=== PATIENT | female | born 1955 | race Caucasian/White ===

== ENCOUNTER 2016-12-11 08:34 | Emergency (ER) | payer OTHER, MEDICAID ==
[~2016-12-11] VITALS: Ht 167.6 cm; Wt 68.0 kg
[2016-12-11] MEDS ORDERED: SODIUM CHLORIDE 0.9% 1,000 ML IV ONE (10:08)
[2016-12-11 10:19] LABS: Urine RBC None Seen /hpf (0 - 4)
[2016-12-11 10:31] LABS: Basophils # (auto) 0 uL; Basophils % (auto) 0.3 % (0.0-2.0); Eosinophils # (auto) 0.1 uL; Eosinophils % (auto) 1.1 % (0.0-7.0); Hematocrit 42.5 % (36.0-46.0); Hemoglobin 13.8 g/dL (12.2-16.2); Lymphocytes # (auto) 2.3 uL; Lymphocytes % (auto) 23.1 % (10.0-50.0); Mean Corpuscular Hemoglobin 28.2 pg (28.0-32.0); Mean Corpuscular Hgb Conc. 32.6 g/dL (32.0-36.0); Mean Corpuscular Volume 86.6 fL (80.0-100.0); Mean Platelet Volume 7.8 fL (7.4-10.4); Monocytes # (auto) 0.5 uL; Monocytes % (auto) 5.1 % (0.0-12.0); Neutrophils % (auto) 70.4 % (37.0-80.0); Platelet Count (auto) 318 10^3/uL (140-450); Red Cell Distribution Width 13.8 % (11.6-16.0); White Blood Cell 9.9 10^3/uL (4.4-10.8)
[2016-12-11 10:33] LABS: Urine Bilirubin Negative (Negative); Urine Blood Negative /uL (Negative); Urine Color Colorless (Yellow); Urine Glucose Normal (Normal); Urine Ketone Negative (Negative); Urine Nitrite Negative (Negative); Urine Squamous Epithelial Cell FEW /hpf (<5); Urine Urobilinogen Normal (Negative); Urine pH 6.5 (5.0-8.0)
[2016-12-11 10:45] LABS: BUN/Creatinine Ratio 30.1; Calcium 9.4 mg/dL (8.5-10.1); Magnesium 2.4 mg/dL (1.6-2.6); Potassium 3.8 mmol/L (3.5-5.1)
[2016-12-11 10:46] LABS: INR 1.05 (0.9-1.15); Partial Thromboplastin Time 26.3 sec (22.64-33.71); Prothrombin Time 10.8 sec (9.37-12.3)
[2016-12-11 11:25] VITALS: BP 98/57
== END 2016-12-11 12:07 | disposition home or self-care (01) ==
LOC: ER 08:34
DX: R04.0 Epistaxis (principal); I48.91 Unspecified atrial fibrillation; M19.90 Unspecified osteoarthritis, unspecified site; I50.9 Heart failure, unspecified; K21.9 Gastro-esophageal reflux disease without esophagitis
CPT/HCPCS: 36415; 80048; 81001; 83735; 85025; 85610; 85730; 96360; 99284; J7030

== ENCOUNTER 2019-01-15 14:56 | Emergency (ER) | payer OTHER, MEDICAID ==
[~2019-01-15] VITALS: Ht 170.2 cm; Wt 74.8 kg
[2019-01-15] MEDS ORDERED: HYDROmorphone HCL 2 MG/ML VL IM ONE (18:00)
[2019-01-15] MEDS ORDERED: ONDANSETRON HCL 4 MG/2 ML VIAL IM ONE (18:00)
[2019-01-15 18:17] VITALS: BP 156/87
== END 2019-01-15 19:21 | disposition home or self-care (01) ==
LOC: EDBD 14:56 → ER 14:56
DX: S52.301A Unspecified fracture of shaft of right radius, initial encounter for closed fracture (principal); S52.201A Unspecified fracture of shaft of right ulna, initial encounter for closed fracture; I48.91 Unspecified atrial fibrillation; M19.90 Unspecified osteoarthritis, unspecified site; I50.9 Heart failure, unspecified; K21.9 Gastro-esophageal reflux disease without esophagitis; Z95.0 Presence of cardiac pacemaker; W18.39XA Other fall on same level, initial encounter; Y93.89 Activity, other specified; Y99.8 Other external cause status; Y92.89 Other specified places as the place of occurrence of the external cause
CPT/HCPCS: 25565; 70450; 73070; 73090; 73100; 82962; 93005; 96372; 99284; J1170; J2405

== ENCOUNTER 2020-12-23 06:29 | Inpatient (IN) | payer MEDICARE, SELFPAY ==
[2020-12-22 22:00] VITALS: BP 120/52
[~2020-12-23] VITALS: Ht 167.6 cm; Wt 60.4 kg
[2020-12-23] MEDS ORDERED: ONDANSETRON HCL 4 MG/2 ML VIAL IV ONE (06:45)
[2020-12-23] MEDS ORDERED: methylPREDNISolone SOD SUCC 125 MG/2 ML VL IV ONE (07:00)
[2020-12-23 07:28] LABS: Basophils # (auto) 0 10 ^3/uL (0-0.2); Basophils % (auto) 0.1 % (0.0-2.0); Eosinophils # (auto) 0 10 ^3/uL (0-0.8); Hematocrit 40.7 % (36.0-46.0); Hemoglobin 13.8 g/dL (12.2-16.2); Lymphocytes # (auto) 0.4 10 ^3/uL (0.4-5.4); Lymphocytes % (auto) 2.4 % (10.0-50.0); Mean Corpuscular Hemoglobin 31.4 pg (28.0-32.0); Mean Corpuscular Hgb Conc. 33.9 g/dL (32.0-36.0); Mean Corpuscular Volume 92.5 fL (80.0-100.0); Monocytes # (auto) 0.7 10 ^3/uL (0-1.3); Monocytes % (auto) 4.1 % (0.0-12.0); Neutrophils # (auto) 15.1 10 ^3/uL (1.6-8.6); Neutrophils % (auto) 93.4 % (37.0-80.0); Red Cell Distribution Width 14.3 % (11.8-14.3); White Blood Cell 16.2 10^3/uL (4.4-10.8)
[2020-12-23 07:34] LABS: INR 1.09 (0.9-1.15); Partial Thromboplastin Time 21.7 sec (23.0-31.2)
[2020-12-23] MEDS ORDERED: AZITHROMYCIN 500MG/ 250ML 250 ML IV ONE (07:45)
[2020-12-23] MEDS ORDERED: cefTRIAXone 1GM/50ML D5W 50 ML IV ONE (07:45)
[2020-12-23 07:47] LABS: Albumin 3.3 g/dL (3.4-5.0); Calcium 9.4 mg/dL (8.5-10.1); Magnesium 2.5 mg/dL (1.6-2.6); Potassium 3.6 mmol/L (3.5-5.1)
[2020-12-23 07:55] LABS: BUN/Creatinine Ratio 38.9; Bilirubin, Total 1.8 mg/dL (0.2-1.0); Total Protein 7.2 g/dL (6.4-8.2)
[2020-12-23] MEDS ORDERED: ENOXAPARIN SOD 60 MG/0.6 ML SYRINGE SC ONE (10:30)
[2020-12-23 11:21] LABS: Urine Bacteria NONE SEEN /hpf (None Seen); Urine Blood Negative /uL (Negative); Urine Hyaline Cast MOD /lpf (0 - 2); Urine Mucus FEW (None Seen); Urine Specific Gravity 1.012 (1.001-1.035); Urine WBC 4 /hpf (0 - 5)
[2020-12-23] MEDS ORDERED: MORPHINE SULFATE INJECTION 2 MG/ML SYRG IV PRN ×2 (11:30)
[2020-12-23] MEDS ORDERED: ONDANSETRON HCL 4 MG/2 ML VIAL IV PRN (11:30)
[2020-12-23] MEDS ORDERED: ACETAMINOPHEN 500 MG TAB PO PRN (11:30)
[2020-12-23] MEDS ORDERED: HYDROcodone-ACET 5/325MG TAB PO PRN (11:30)
[2020-12-23] MEDS ORDERED: NITROGLYCERIN 0.4 MG SL TAB SL PRN (11:30)
[2020-12-23] MEDS ORDERED: DEXTROSE (50%) 50ML SYRG IV PRN (11:45)
[2020-12-23] MEDS ORDERED: ZINC220C8 PO (14:22)
[2020-12-23 15:25] VITALS: BP 114/66
[2020-12-23 15:30] VITALS: BP 131/86
[2020-12-23] MEDS: ACCU-CHEK COMFORT CURVE STRIP VI SCH ×2 (17:00→21:55)
[2020-12-23] MEDS ORDERED: SPIR25TA8 PO (17:06)
[2020-12-23] MEDS ORDERED: MIDO2.5T15 PO (17:06)
[2020-12-23] MEDS ORDERED: ALEN70TA74 PO (17:06)
[2020-12-23] MEDS ORDERED: MEXI150C15 PO (17:06)
[2020-12-23] MEDS ORDERED: GINK60TA2 PO (17:06)
[2020-12-23] MEDS ORDERED: IVAB1.7T PO (17:06)
[2020-12-23] MEDS ORDERED: ASCO500T11 PO (17:06)
[2020-12-23] MEDS ORDERED: FURO20TA3 PO (17:06)
[2020-12-23] MEDS ORDERED: CARV3.1240 PO (17:06)
[2020-12-23] MEDS ORDERED: CHOL20009 PO (17:06)
[2020-12-23] MEDS ORDERED: ATOR40TA52 PO (17:06)
[2020-12-23] MEDS: InsuLIN REG 1unit/0.01ml Soln (100units/ml) SC SCH ×2 (17:13→21:58)
[2020-12-23 20:00] VITALS: BP 120/52
[2020-12-23] MEDS: ATORVASTATIN 20 MG TAB PO SCH (21:54)
[2020-12-23] MEDS: CARVEDILOL 3.125 MG TAB PO SCH (21:55)
[2020-12-23 22:00] VITALS: BP 120/52
[2020-12-24] MEDS: ALBUTEROL SULF 2.5 MG/0.5ML(0.5%) NEB SOLN NEB PRN ×2 (03:48→23:12)
[2020-12-24 05:00] VITALS: BP 104/75
[2020-12-24] MEDS: ACCU-CHEK COMFORT CURVE STRIP VI SCH ×4 (06:17→22:00)
[2020-12-24] MEDS: InsuLIN REG 1unit/0.01ml Soln (100units/ml) SC SCH ×4 (06:18→22:00)
[2020-12-24 06:30] LABS: Basophils # (auto) 0 10 ^3/uL (0-0.2); Basophils % (auto) 0.2 % (0.0-2.0); Eosinophils # (auto) 0 10 ^3/uL (0-0.8); Hematocrit 37.7 % (36.0-46.0); Lymphocytes # (auto) 0.7 10 ^3/uL (0.4-5.4); Lymphocytes % (auto) 4.8 % (10.0-50.0); Mean Corpuscular Hemoglobin 31.7 pg (28.0-32.0); Mean Corpuscular Hgb Conc. 34.4 g/dL (32.0-36.0); Mean Corpuscular Volume 92.2 fL (80.0-100.0); Monocytes # (auto) 0.9 10 ^3/uL (0-1.3); Neutrophils # (auto) 13.4 10 ^3/uL (1.6-8.6); Nucleated Red Blood Cells % 0.1 %; Red Blood Cells 4.09 10^6/uL (4.0-5.20); Red Cell Distribution Width 14.4 % (11.8-14.3); White Blood Cell 15.1 10^3/uL (4.4-10.8)
[2020-12-24 06:38] LABS: INR 1.11 (0.9-1.15); Partial Thromboplastin Time 25.2 sec (23.0-31.2)
[2020-12-24 06:42] LABS: Calcium 9.3 mg/dL (8.5-10.1); Potassium 3.4 mmol/L (3.5-5.1)
[2020-12-24 06:45] LABS: BUN/Creatinine Ratio 72.2
[2020-12-24 08:00] VITALS: BP 100/78
[2020-12-24] MEDS: ENOXAPARIN SOD 40 MG/0.4 ML SYRINGE SC SCH (09:59)
[2020-12-24] MEDS ORDERED: FUROSEMIDE 40 MG/4 ML VIAL IV SCH (10:00)
[2020-12-24] MEDS: CARVEDILOL 3.125 MG TAB PO SCH ×2 (10:00→22:00)
[2020-12-24] MEDS: ASPirin-EC 81 mg tab PO SCH (10:00)
[2020-12-24] MEDS: FAMOTIDINE 20 MG TAB PO SCH (10:00)
[2020-12-24] MEDS: LISINOPRIL 10 MG TAB PO SCH (10:00)
[2020-12-24] MEDS: FUROSEMIDE 40 MG/4 ML VIAL IV SCH ×2 (12:15→22:00)
[2020-12-24 16:46] VITALS: BP 110/70
[2020-12-24 22:00] VITALS: BP 106/65
[2020-12-24] MEDS: ATORVASTATIN 20 MG TAB PO SCH (22:22)
[2020-12-25 05:00] VITALS: BP 115/72
[2020-12-25] MEDS: ALBUTEROL SULF 2.5 MG/0.5ML(0.5%) NEB SOLN NEB PRN ×2 (06:10→19:09)
[2020-12-25] MEDS: ACCU-CHEK COMFORT CURVE STRIP VI SCH ×3 (06:39→17:09)
[2020-12-25] MEDS: InsuLIN REG 1unit/0.01ml Soln (100units/ml) SC SCH ×3 (06:40→17:00)
[2020-12-25 08:30] VITALS: BP 98/68
[2020-12-25 08:55] VITALS: BP 98/68
[2020-12-25 09:11] LABS: Basophils # (auto) 0 10 ^3/uL (0-0.2); Basophils % (auto) 0.4 % (0.0-2.0); Eosinophils # (auto) 0 10 ^3/uL (0-0.8); Eosinophils % (auto) 0.4 % (0.0-7.0); Hematocrit 36.7 % (36.0-46.0); Hemoglobin 12.1 g/dL (12.2-16.2); Lymphocytes # (auto) 1.1 10 ^3/uL (0.4-5.4); Lymphocytes % (auto) 8.7 % (10.0-50.0); Mean Corpuscular Hemoglobin 30.4 pg (28.0-32.0); Mean Corpuscular Volume 92.1 fL (80.0-100.0); Monocytes # (auto) 0.6 10 ^3/uL (0-1.3); Neutrophils # (auto) 10.6 10 ^3/uL (1.6-8.6); Neutrophils % (auto) 85.5 % (37.0-80.0); Red Blood Cells 3.98 10^6/uL (4.0-5.20); Red Cell Distribution Width 14.2 % (11.8-14.3); White Blood Cell 12.3 10^3/uL (4.4-10.8)
[2020-12-25 09:26] LABS: BUN/Creatinine Ratio 74.4
[2020-12-25] MEDS: LISINOPRIL 10 MG TAB PO SCH (10:00)
[2020-12-25] MEDS: CARVEDILOL 3.125 MG TAB PO SCH (10:00)
[2020-12-25] MEDS ORDERED: levoFLOXacin 500 MG TAB PO ONE (10:15)
[2020-12-25] MEDS ORDERED: POTASSIUM CHL 20 Meq TABLET PO ONE (10:15)
[2020-12-25] MEDS: FUROSEMIDE 40 MG/4 ML VIAL IV SCH (10:50)
[2020-12-25] MEDS: FAMOTIDINE 20 MG TAB PO SCH (10:51)
[2020-12-25] MEDS: POTASSIUM CHL 20MEQ/100ML 100 ML IV SCH ×2 (10:52→13:50)
[2020-12-25] MEDS: ENOXAPARIN SOD 40 MG/0.4 ML SYRINGE SC SCH (10:52)
[2020-12-25] MEDS: ASPirin-EC 81 mg tab PO SCH (10:54)
[2020-12-25 12:16] VITALS: BP 98/68
[2020-12-25 13:25] VITALS: BP 142/52
[2020-12-25 16:46] VITALS: BP 90/60
[2020-12-26] MEDS ORDERED: levoFLOXacin 500 MG TAB PO SCH (10:00)
[2020-12-26] MEDS ORDERED: POTASSIUM CHL 20 Meq TABLET PO SCH (10:00)
== END 2020-12-25 20:29 | disposition hospice, home (50) | DRG 177 ==
LOC: EDBD 06:29 → ER 06:29 → TELE 06:30 → TELE-WESTW 15:11
PROVIDERS: ADMIT Nurse Practitioner Acute Care; ATTEND Internal Medicine
PROC: 5A09357 Assistance with Respiratory Ventilation, Less than 24 Consecutive Hours, Continuous Positive Airway Pressure (ICD-10-PCS; principal; 2020-12-23)
DX: U07.1 COVID-19 (principal); I21.A1 Myocardial infarction type 2; J96.21 Acute and chronic respiratory failure with hypoxia; J12.82 Pneumonia due to coronavirus disease 2019; I50.23 Acute on chronic systolic (congestive) heart failure; D68.59 Other primary thrombophilia; E87.1 Hypo-osmolality and hyponatremia; J44.0 Chronic obstructive pulmonary disease with (acute) lower respiratory infection; I42.0 Dilated cardiomyopathy; I11.0 Hypertensive heart disease with heart failure; E11.9 Type 2 diabetes mellitus without complications; E78.5 Hyperlipidemia, unspecified; I48.91 Unspecified atrial fibrillation; I50.84 End stage heart failure; Z79.84 Long term (current) use of oral hypoglycemic drugs; Z95.810 Presence of automatic (implantable) cardiac defibrillator
CPT/HCPCS: 36415; 36600; 71045; 80048; 80053; 81001; 82805; 82962; 83036; 83735; 83880; 84443; 84484; 85025; 85379; 85610; 85730; 86141; 87081; 87426; 93005; 93306; 93970; 94640; 94660; 96365; 96375; 99291; G0378; J0696; J1815; J2405; J3480

== ENCOUNTER 2021-01-06 16:50 | Inpatient (IN) | payer MEDICAID, MEDICARE, OTHER ==
[~2021-01-06] VITALS: Ht 167.6 cm; Wt 57.5 kg
[~2021-01-06 16:50] MED LIST: ALEN70TA74 PO; ASCO500T11 PO; ATOR40TA52 PO; CARV3.1240 PO; CHOL20009 PO; FURO20TA3 PO; GINK60TA2 PO; IVAB1.7T PO; MEXI150C15 PO; MIDO2.5T15 PO; SPIR25TA8 PO; ZINC220C8 PO
[2021-01-06 17:49] LABS: Basophils # (auto) 0 10 ^3/uL (0-0.2); Basophils % (auto) 0.1 % (0.0-2.0); Eosinophils # (auto) 0 10 ^3/uL (0-0.8); Eosinophils % (auto) 0.1 % (0.0-7.0); Hematocrit 35.4 % (36.0-46.0); Hemoglobin 11.9 g/dL (12.2-16.2); Lymphocytes # (auto) 0.8 10 ^3/uL (0.4-5.4); Lymphocytes % (auto) 6.9 % (10.0-50.0); Mean Corpuscular Hemoglobin 31.2 pg (28.0-32.0); Mean Corpuscular Hgb Conc. 33.7 g/dL (32.0-36.0); Mean Corpuscular Volume 92.8 fL (80.0-100.0); Monocytes # (auto) 0.6 10 ^3/uL (0-1.3); Monocytes % (auto) 5.3 % (0.0-12.0); Neutrophils # (auto) 10.4 10 ^3/uL (1.6-8.6); Neutrophils % (auto) 87.6 % (37.0-80.0); Platelet Count (auto) 262 10^3/uL (140-450); Red Blood Cells 3.81 10^6/uL (4.0-5.20); Red Cell Distribution Width 14.7 % (11.8-14.3); White Blood Cell 11.9 10^3/uL (4.4-10.8)
[2021-01-06 18:12] LABS: Albumin 2.9 g/dL (3.4-5.0); Magnesium 2.3 mg/dL (1.6-2.6); Potassium 4.1 mmol/L (3.5-5.1)
[2021-01-06 18:17] LABS: BUN/Creatinine Ratio 55.4; Bilirubin, Total 0.7 mg/dL (0.2-1.0); Total Protein 6.1 g/dL (6.4-8.2)
[2021-01-06 22:39] LABS: Urine Bacteria NONE SEEN /hpf (None Seen); Urine Blood Negative /uL (Negative); Urine Mucus FEW (None Seen); Urine Specific Gravity 1.017 (1.001-1.035); Urine WBC 1 /hpf (0 - 5)
[2021-01-06] MEDS ORDERED: NITROGLYCERIN 0.4 MG SL TAB SL PRN (23:30)
[2021-01-06] MEDS ORDERED: methylPREDNISolone SOD SUCC 125 MG/2 ML VL IV ONE (23:30)
[2021-01-06] MEDS ORDERED: MORPHINE SULF INJ 2 MG/ML SYRINGE 1ML IV PRN (23:30)
[2021-01-06] MEDS ORDERED: DEXTROSE (50%) 50ML SYRG IV PRN (23:30)
[2021-01-06] MEDS: ALBUTEROL SULF 2.5 MG/0.5ML(0.5%) NEB SOLN NEB SCH (23:53)
[2021-01-06] MEDS: IPRATROPIUM BROM 0.5 MG/2.5ML INH SOL NEB SCH (23:53)
[2021-01-07 00:05] VITALS: BP 95/62
[2021-01-07] MEDS: ALBUTEROL SULF 2.5 MG/0.5ML(0.5%) NEB SOLN NEB SCH ×3 (06:00→18:32)
[2021-01-07] MEDS: IPRATROPIUM BROM 0.5 MG/2.5ML INH SOL NEB SCH ×3 (06:00→18:32)
[2021-01-07] MEDS: FUROSEMIDE 40 MG/4 ML VIAL IV SCH ×3 (06:46→22:01)
[2021-01-07 06:48] LABS: Basophils # (auto) 0 10 ^3/uL (0-0.2); Basophils % (auto) 0.1 % (0.0-2.0); Eosinophils # (auto) 0.1 10 ^3/uL (0-0.8); Eosinophils % (auto) 0.7 % (0.0-7.0); Hematocrit 35.1 % (36.0-46.0); Hemoglobin 11.8 g/dL (12.2-16.2); Lymphocytes # (auto) 1.7 10 ^3/uL (0.4-5.4); Lymphocytes % (auto) 14.7 % (10.0-50.0); Mean Corpuscular Hemoglobin 31.1 pg (28.0-32.0); Mean Corpuscular Hgb Conc. 33.6 g/dL (32.0-36.0); Mean Corpuscular Volume 92.6 fL (80.0-100.0); Monocytes # (auto) 0.9 10 ^3/uL (0-1.3); Monocytes % (auto) 7.7 % (0.0-12.0); Neutrophils # (auto) 9.1 10 ^3/uL (1.6-8.6); Neutrophils % (auto) 76.8 % (37.0-80.0); Nucleated Red Blood Cells % 0.1 %; Platelet Count (auto) 256 10^3/uL (140-450); Red Blood Cells 3.79 10^6/uL (4.0-5.20); Red Cell Distribution Width 14.6 % (11.8-14.3); White Blood Cell 11.8 10^3/uL (4.4-10.8)
[2021-01-07 06:57] LABS: Potassium 3.6 mmol/L (3.5-5.1)
[2021-01-07] MEDS: InsuLIN REG 1unit/0.01ml Soln (100units/ml) SC SCH ×4 (07:00→22:05)
[2021-01-07 07:07] LABS: Albumin 2.8 g/dL (3.4-5.0); Bilirubin, Total 0.8 mg/dL (0.2-1.0); Calcium 8.9 mg/dL (8.5-10.1); Total Protein 5.9 g/dL (6.4-8.2)
[2021-01-07] MEDS: ACCU-CHEK COMFORT CURVE STRIP VI SCH ×4 (07:49→22:02)
[2021-01-07 22:39] VITALS: BP 106/67
[2021-01-07 23:55] VITALS: BP 106/67
[2021-01-08] MEDS: ALBUTEROL SULF 2.5 MG/0.5ML(0.5%) NEB SOLN NEB SCH ×4 (00:08→19:56)
[2021-01-08] MEDS: IPRATROPIUM BROM 0.5 MG/2.5ML INH SOL NEB SCH ×4 (00:08→19:56)
[2021-01-08] MEDS ORDERED: POTA10TA51 PO (00:22)
[2021-01-08] MEDS ORDERED: SPIR25TA8 PO (00:22)
[2021-01-08] MEDS ORDERED: PRED20TA2 PO (00:22)
[2021-01-08] MEDS ORDERED: LEVO100T8 PO (00:22)
[2021-01-08] MEDS ORDERED: MEXI150C15 PO (00:22)
[2021-01-08] MEDS ORDERED: APPLTAB PO (00:22)
[2021-01-08] MEDS ORDERED: ONDA-144 PO (00:22)
[2021-01-08] MEDS ORDERED: ZINC220C8 PO (00:22)
[2021-01-08] MEDS ORDERED: FLUT0.05 NAS (00:22)
[2021-01-08] MEDS ORDERED: PRAV20TA3 PO (00:22)
[2021-01-08 04:37] VITALS: BP 122/67
[2021-01-08 05:26] LABS: Basophils # (auto) 0 10 ^3/uL (0-0.2); Basophils % (auto) 0.1 % (0.0-2.0); Eosinophils # (auto) 0 10 ^3/uL (0-0.8); Hematocrit 34.5 % (36.0-46.0); Hemoglobin 11.8 g/dL (12.2-16.2); Lymphocytes # (auto) 0.9 10 ^3/uL (0.4-5.4); Lymphocytes % (auto) 7.6 % (10.0-50.0); Mean Corpuscular Hemoglobin 31.5 pg (28.0-32.0); Mean Corpuscular Hgb Conc. 34.2 g/dL (32.0-36.0); Mean Corpuscular Volume 92.2 fL (80.0-100.0); Monocytes # (auto) 0.6 10 ^3/uL (0-1.3); Monocytes % (auto) 5.2 % (0.0-12.0); Neutrophils # (auto) 10.2 10 ^3/uL (1.6-8.6); Neutrophils % (auto) 87.1 % (37.0-80.0); Platelet Count (auto) 250 10^3/uL (140-450); Red Blood Cells 3.74 10^6/uL (4.0-5.20); Red Cell Distribution Width 14.8 % (11.8-14.3); White Blood Cell 11.8 10^3/uL (4.4-10.8)
[2021-01-08 05:48] LABS: Calcium 9.2 mg/dL (8.5-10.1); Potassium 3.9 mmol/L (3.5-5.1)
[2021-01-08 05:55] LABS: BUN/Creatinine Ratio 77.5
[2021-01-08] MEDS: FUROSEMIDE 40 MG/4 ML VIAL IV SCH ×2 (06:00→14:00)
[2021-01-08] MEDS: ACCU-CHEK COMFORT CURVE STRIP VI SCH ×4 (06:47→22:38)
[2021-01-08] MEDS: InsuLIN REG 1unit/0.01ml Soln (100units/ml) SC SCH ×4 (06:47→22:00)
[2021-01-08 09:00] VITALS: BP 106/64
[2021-01-08 12:52] VITALS: BP 100/66
[2021-01-08 17:00] VITALS: BP 94/68
[2021-01-08] MEDS: FUROSEMIDE 40 MG TAB PO SCH (17:34)
[2021-01-08 22:00] VITALS: BP 95/70
[2021-01-08] MEDS ORDERED: FUROSEMIDE 20 MG/2 ML VIAL IV SCH (22:00)
[2021-01-09] MEDS: ACETAMINOPHEN 325 MG TAB PO PRN ×2 (00:24→20:47)
[2021-01-09] MEDS: IPRATROPIUM BROM 0.5 MG/2.5ML INH SOL NEB SCH ×4 (00:25→18:44)
[2021-01-09] MEDS: ALBUTEROL SULF 2.5 MG/0.5ML(0.5%) NEB SOLN NEB SCH ×4 (00:25→18:44)
[2021-01-09 05:00] VITALS: BP 101/68
[2021-01-09] MEDS: FUROSEMIDE 40 MG TAB PO SCH ×2 (06:35→17:53)
[2021-01-09] MEDS: ACCU-CHEK COMFORT CURVE STRIP VI SCH ×4 (06:36→22:00)
[2021-01-09] MEDS: InsuLIN REG 1unit/0.01ml Soln (100units/ml) SC SCH ×4 (06:36→22:00)
[2021-01-09 08:42] VITALS: BP 127/61
[2021-01-09] MEDS: PANTOPRAZOLE 40 MG TAB PO SCH (09:52)
[2021-01-09] MEDS: Ensure HIGH Protein Chocolate 8oz Bottle PO SCH ×3 (09:52→17:53)
[2021-01-09 12:25] VITALS: BP 91/61
[2021-01-09] MEDS: ONDANSETRON ODT 4 MG TAB PO PRN (15:48)
[2021-01-09 16:04] VITALS: BP 108/48
[2021-01-10] VITALS (7 sets, daily range): BP systolic 83–121; BP diastolic 56–75
[2021-01-10] MEDS: ALBUTEROL SULF 2.5 MG/0.5ML(0.5%) NEB SOLN NEB SCH ×4 (00:20→17:49)
[2021-01-10] MEDS: IPRATROPIUM BROM 0.5 MG/2.5ML INH SOL NEB SCH ×4 (00:20→17:49)
[2021-01-10] MEDS: ONDANSETRON ODT 4 MG TAB PO PRN ×3 (01:53→20:15)
[2021-01-10] MEDS: FUROSEMIDE 40 MG TAB PO SCH ×2 (06:00→18:12)
[2021-01-10] MEDS: ACCU-CHEK COMFORT CURVE STRIP VI SCH ×4 (06:54→22:00)
[2021-01-10] MEDS: InsuLIN REG 1unit/0.01ml Soln (100units/ml) SC SCH ×4 (06:54→22:00)
[2021-01-10] MEDS: Ensure HIGH Protein Chocolate 8oz Bottle PO SCH ×3 (08:55→18:12)
[2021-01-10] MEDS: ACETAMINOPHEN 325 MG TAB PO PRN ×2 (08:56→14:22)
[2021-01-10] MEDS: PANTOPRAZOLE 40 MG TAB PO SCH (08:56)
[2021-01-11] MEDS: IPRATROPIUM BROM 0.5 MG/2.5ML INH SOL NEB SCH ×4 (01:09→18:30)
[2021-01-11] MEDS: ALBUTEROL SULF 2.5 MG/0.5ML(0.5%) NEB SOLN NEB SCH ×4 (01:09→18:30)
[2021-01-11 05:00] VITALS: BP 104/56
[2021-01-11] MEDS: FUROSEMIDE 40 MG TAB PO SCH ×2 (06:00→18:18)
[2021-01-11] MEDS: InsuLIN REG 1unit/0.01ml Soln (100units/ml) SC SCH ×4 (06:01→21:52)
[2021-01-11] MEDS: ACCU-CHEK COMFORT CURVE STRIP VI SCH ×4 (06:02→21:53)
[2021-01-11] MEDS: ONDANSETRON ODT 4 MG TAB PO PRN ×2 (06:54→20:07)
[2021-01-11 07:00] VITALS: BP 124/67
[2021-01-11 08:00] VITALS: BP 104/56
[2021-01-11] MEDS: Ensure HIGH Protein Chocolate 8oz Bottle PO SCH ×3 (08:00→18:18)
[2021-01-11] MEDS: PANTOPRAZOLE 40 MG TAB PO SCH (10:29)
[2021-01-11 13:00] VITALS: BP 103/48
[2021-01-11] MEDS ORDERED: DOCUSATE SOD 100 MG CAP PO ONE (16:00)
[2021-01-11 18:00] VITALS: BP 100/66
[2021-01-11] MEDS: ACETAMINOPHEN 325 MG TAB PO PRN (20:07)
[2021-01-11] MEDS: DOCUSATE SOD 100 MG CAP PO SCH (21:53)
[2021-01-11 22:00] VITALS: BP 98/57
[2021-01-12] VITALS (7 sets, daily range): BP systolic 94–126; BP diastolic 55–71
[2021-01-12] MEDS: ALBUTEROL SULF 2.5 MG/0.5ML(0.5%) NEB SOLN NEB SCH ×4 (00:28→18:14)
[2021-01-12] MEDS: IPRATROPIUM BROM 0.5 MG/2.5ML INH SOL NEB SCH ×4 (00:28→18:14)
[2021-01-12] MEDS: ACCU-CHEK COMFORT CURVE STRIP VI SCH ×4 (06:16→22:00)
[2021-01-12] MEDS: FUROSEMIDE 40 MG TAB PO SCH ×2 (06:16→18:17)
[2021-01-12] MEDS: InsuLIN REG 1unit/0.01ml Soln (100units/ml) SC SCH ×4 (06:19→22:59)
[2021-01-12] MEDS: ONDANSETRON ODT 4 MG TAB PO PRN ×2 (06:23→14:00)
[2021-01-12] MEDS ORDERED: LEVOTHYROXINE SODIUM 100 MCG TAB PO SCH (07:00)
[2021-01-12] MEDS: Ensure HIGH Protein Chocolate 8oz Bottle PO SCH ×3 (08:00→18:17)
[2021-01-12] MEDS ORDERED: ENOXAPARIN SOD 30 MG/0.3 ML SYRINGE SC SCH (10:00)
[2021-01-12] MEDS: DOCUSATE SOD 100 MG CAP PO SCH ×2 (11:38→23:40)
[2021-01-12] MEDS: PANTOPRAZOLE 40 MG TAB PO SCH (11:38)
[2021-01-12 15:38] LABS: BUN/Creatinine Ratio 42.3; Calcium 9.3 mg/dL (8.5-10.1); Magnesium 2.3 mg/dL (1.6-2.6); Potassium 3.7 mmol/L (3.5-5.1)
[2021-01-13] MEDS: IPRATROPIUM BROM 0.5 MG/2.5ML INH SOL NEB SCH (00:12)
[2021-01-13] MEDS: ALBUTEROL SULF 2.5 MG/0.5ML(0.5%) NEB SOLN NEB SCH (00:12)
[2021-01-13 01:46] VITALS: BP 105/71
== END 2021-01-13 01:30 | DRG 291 ==
LOC: EDBD 16:50 → ER 16:50 → TELE 23:28 → TELE-EAST 01-07 21:00 → TELE-WESTW 01-09 16:21
PROVIDERS: ADMIT Internal Medicine; ATTEND Internal Medicine
DX: I11.0 Hypertensive heart disease with heart failure (principal); U07.1 COVID-19; E44.1 Mild protein-calorie malnutrition; J44.9 Chronic obstructive pulmonary disease, unspecified; I42.9 Cardiomyopathy, unspecified; I48.91 Unspecified atrial fibrillation; R62.7 Adult failure to thrive; E78.5 Hyperlipidemia, unspecified; I50.23 Acute on chronic systolic (congestive) heart failure; R54 Age-related physical debility; K21.9 Gastro-esophageal reflux disease without esophagitis; Z20.822 Contact with and (suspected) exposure to COVID-19; R00.0 Tachycardia, unspecified; I25.10 Atherosclerotic heart disease of native coronary artery without angina pectoris; E11.9 Type 2 diabetes mellitus without complications; Z82.49 Family history of ischemic heart disease and other diseases of the circulatory system; Z82.5 Family history of asthma and other chronic lower respiratory diseases; Z95.0 Presence of cardiac pacemaker
CPT/HCPCS: 36415; 71045; 80048; 80053; 81001; 82962; 83605; 83735; 83880; 84484; 85025; 85610; 87081; 87426; 94640; 96374; 96375; 97116; 97530; G0378; J1815; Q0162